=== PATIENT | female | born 1990 | race American Indian/Alaskan Native ===

== ENCOUNTER 2021-10-01 03:22 | Emergency (ER) | payer OTHER ==
[2021-10-01 11:10] LABS: Basophils % (Auto) 0.3 % (0.0-1.8); Eosinophils % (Auto) 0.1 % (0.0-4.3); Hematocrit 36.9 % (30.3-42.9); Hemoglobin 12.5 gm/dl (10.1-14.3); Lymphocytes # (Auto) 1.5 K/mm3 (1.2-5.4); Lymphocytes % (Auto) 22.4 % (13.4-35.0); Mean Corpuscular HGB Conc 34 % (30-34); Mean Corpuscular Volume 87 fl (79-97); Monocytes # (Auto) 0.5 K/mm3 (0.0-0.8); Monocytes % (Auto) 7.9 % (0.0-7.3); Platelet Count 285 K/mm3 (140-440); Red Blood Count 4.22 M/mm3 (3.65-5.03)
[2021-10-01 11:34] LABS: Alanine Aminotransferase 6 units/L (7-56); Blood Urea Nitrogen 11 mg/dL (7-17); Hemolysis Index 11
[2021-10-01 11:41] LABS: BUN/Creatinine Ratio 16
[2021-10-01] MEDS ORDERED: ASPIRIN 81 MG TAB CHEW PO ONE (12:40)
--- NOTE | 2021-10-01 13:43 | XRay Report ---
CHEST 2 VIEWS INDICATION / CLINICAL INFORMATION: chest pain. COMPARISON: None available. FINDINGS: SUPPORT DEVICES: None. HEART / MEDIASTINUM: No significant abnormality. LUNGS / PLEURA: No significant pulmonary or pleural abnormality. No pneumothorax. ADDITIONAL FINDINGS: No significant additional findings. IMPRESSION: 1. No acute findings. Signer Name: Johan Robles DO Signed: 10/01/2021 1:38 PM Workstation Name: [id number]
[2021-10-01] MEDS ORDERED: KETOROLAC 30 MG/1 ML INJ IV ONE (14:06)
[2021-10-01] MEDS ORDERED: ONDANSETRON 4 MG/2 ML INJ IV ONE (14:19)
--- NOTE | 2021-10-01 14:22 | Emergency Department Report ---
ED Chest Pain HPI - General Chief Complaint: Chest Pain Stated Complaint: CHEST PAIN Source: patient, EMS Mode of arrival: Stretcher Limitations: No Limitations - History of Present Illness Initial Comments: Patient is a 31-year-old female with a history of chronic anemia who presents to the ED with complaint of acute onset persistent diffuse chest pain intermittently for the last 4 days. Patient is a complaint of nausea and vomiting. Patient states that the pain is especially worse with movement or palpation of the chest wall. Patient denies abdominal pain, dizziness, syncope, nausea and vomiting, shortness of breath, back pain, traumatic injury, heavy lifting, fever, chills, cough, sore throat, nasal and sinus congestion, palpitations or headache or neck pain. MD Complaint: chest pain -: days(s) (4) Onset: during exertion, awoke with symptoms Pain Location: substernal, left chest, right chest Pain Radiation: none Severity: severe Severity scale (0 -10): 7 Quality: aching, sharp Consistency: constant Improves With: nothing Worsens With: exertion, inspiration, palpation, movement re: nausea, vomting. denies: diaphoresis, dyspnea, sense of impending doom Other Symptoms: denies: cough, fever, syncope, rash, acid taste in mouth, leg s welling, palpitations, burping Treatments Prior to Arrival: none - Related Data Previous Rx's Medication Instructions Recorded Last Taken Type Famotidine [Pepcid] 20 mg PO BID #60 tablet 10/01/21 Unknown Rx Naproxen 500 mg PO Q12H PRN #24 tab 10/01/21 Unknown Rx Ondansetron [Zofran Odt] 4 mg PO Q8HR PRN #20 tab.rapdis 10/01/21 Unknown Rx Allergies Allergy/AdvReac Type Severity Reaction Status Date / Time No Known Allergies Allergy Verified 10/01/21 11:28 Heart Score - HEART Score History: Slightly suspicious EKG: Normal Age: < 45 Risk factors: No known risk factors Troponin: < normal limit HEART Score: 0 - EKG Read Time Time EKG Completed: 10:18 EKG Read Time: 10:25 - Critical Actions Critical Actions: 0-3 pts:0.9-1.7%risk of adverse cardiac event.Candidate for discharge ED Review of Systems ROS: Stated complaint: CHEST PAIN Other details as noted in HPI Constitutional: denies: chills, fever Eyes: denies: eye pain, eye discharge, vision change ENT: denies: ear pain, throat pain Respiratory: denies: cough, shortness of breath, wheezing Cardiovascular: chest pain (Diffuse chest pain). denies: palpitations Endocrine: no symptoms reported Gastrointestinal: nausea, vomiting. denies: abdominal pain, diarrhea Genitourinary: denies: urgency, dysuria, discharge Musculoskeletal: denies: back pain, joint swelling, arthralgia Skin: denies: rash, lesions Neurological: denies: headache, weakness, paresthesias Psychiatric: denies: anxiety, depression Hematological/Lymphatic: denies: easy bleeding, easy bruising ED Past Medical Hx - Past Medical History Previous Medical History?: Yes Additional medical history: Iron deficiency anemia - Medications Home Medications: Home Medications Medication Instructions Recorded Confirmed Last Taken Type Famotidine [Pepcid] 20 mg PO BID #60 tablet 10/01/21 Unknown Rx Naproxen 500 mg PO Q12H PRN #24 tab 10/01/21 Unknown Rx Ondansetron [Zofran Odt] 4 mg PO Q8HR PRN #20 tab.rapdis 10/01/21 Unknown Rx ED Physical Exam - General Limitations: No Limitations General appearance: alert, in no apparent distress - Head Head exam: Present: atraumatic, normocephalic, normal inspection - Eye Eye exam: Present: normal appearance, PERRL, EOMI Pupils: Present: normal accommodation - ENT ENT exam: Present: normal exam, normal orophraynx, mucous membranes moist, TM's normal bilaterally, normal external ear exam - Neck Neck exam: Present: normal inspection, full ROM. Absent: tenderness - Respiratory Respiratory exam: Present: normal lung sounds bilaterally, chest wall tenderness (Palpable reproducible diffuse chest wall tenderness). Absent: respiratory distress, wheezes, rales, rhonchi, accessory muscle use, prolonged expiratory - Cardiovascular Cardiovascular Exam: Present: regular rate, normal rhythm, normal heart sounds. Absent: systolic murmur, diastolic murmur, rubs, gallop - GI/Abdominal GI/Abdominal exam: Present: soft, normal bowel sounds. Absent: distended, tenderness, guarding, rebound, hyperactive bowel sounds, organomegaly, mass - Extremities Exam Extremities exam: Present: normal inspection, full ROM, normal capillary refill. Absent: tenderness - Back Exam Back exam: Present: normal inspection, full ROM. Absent: tenderness, CVA tenderness (R), CVA tenderness (L), muscle spasm, vertebral tenderness - Neurological Exam Neurological exam: Present: alert, oriented X3, CN II-XII intact, normal gait, reflexes normal - Psychiatric Psychiatric exam: Present: normal affect, normal mood - Skin Skin exam: Present: warm, dry, intact, normal color. Absent: rash ED Course Vital Signs 10/01/21 03:29 Temperature 98 F Pulse Rate 85 Respiratory 16 Rate Blood Pressure 119/76 [Right] O2 Sat by Pulse 98 Oximetry RANDELL score - Randell Score Age > 65: (0) No Aspirin use within the Past 7 Days: (0) No 3 or more CAD Risk Factors: (0) No 2 or more Angina events in past 24 hrs: (0) No Known CAD with more than 50% Stenosis: (0) No Elevated Cardiac Markers: (0) No ST Deviation Greater than 0.5mm: (0) No RANDELL Score: 0 ED Medical Decision Making - Lab Data Result diagrams: 10/01/21 11:02 10/01/21 11:02 - EKG Data EKG shows normal: sinus rhythm Rate: bradycardia - EKG Data Interpretation: normal EKG 10/01/21 14:24 EKG shows sinus bradycardia with a ventricular rate of [address] or T wave abnormalities - Radiology Data Radiology results: report reviewed, image reviewed [facility] [address] [place] [address] XRay Report Signed Patient: MALINDA FIORE MR#: [id number] : 1990 Acct:[id number] Age/Sex: 31 / F ADM Date: 10/01/21 Loc: ED Attending Dr: Ordering Physician: JAZMINE PEÑA Date of Service: 10/01/21 Procedure(s): XR chest routine 2V Accession Number(s): [id number] cc: JAZMINE PEÑA Fluoro Time In Minutes: CHEST 2 VIEWS INDICATION / CLINICAL INFORMATION: chest pain. COMPARISON: None available. FINDINGS: SUPPORT DEVICES: None. HEART / MEDIASTINUM: No significant abnormality. LUNGS / PLEURA: No significant pulmonary or pleural abnormality. No pneu mothorax. ADDITIONAL FINDINGS: No significant additional findings. IMPRESSION: 1. No acute findings. Signer Name: Johan Robles DO Signed: 10/01/2021 1:38 PM Workstation Name: [id number] Transcribed By: TREVOR Dictated By: JOHAN ROBLES DO Electronically Authenticated By: JOHAN ROBLES DO Signed Date/Time: 10/01/211337 DD/ 36 TD/TT: Print - Medical Decision Making This is a 31-year-old female with a history of chronic anemia who presents to the ED with complaint of acute onset persistent diffuse chest pain intermittently for the last 4 days. Patient is a complaint of nausea and vomiting. Patient states that the pain is especially worse with movement or palpation of the chest wall. In the ED, patient is alert and oriented x3 and is not in any distress. Patient is hemodynamically stable. Chest x-ray showed no acute cardiopulmonary abnormalities or pneumonitis. EKG shows sinus bra dycardia with a ventricular rate of [address] or T wave abnormalities. All lab test results were reviewed and are all nonactionable including the initial and 3-hour troponin levels. Patient heart score is 0, and patient is PERC negative per Wells criteria. Patient was discharged home on medications for pain since her symptoms are likely due to acute costochondritis. Patient was advised to follow-up with her primary care physician in 5 to 7 days for reevaluation or return to the ED immediately if symptoms get worse. - Differential Diagnosis Costochondritis; ACS; muscle strain; pneumonia; GERD Critical care attestation.: If time is entered above; I have spent that time in minutes in the direct care of this critically ill patient, excluding procedure time. ED Disposition Clinical Impression: Acute nonspecific chest pain with low risk of coronary artery disease, Muscle strain of anterior chest wall, Acute costochondritis, Nausea and vomiting in adult patient Disposition: 01 HOME / SELF CARE / HOMELESS Is pt being admited?: No Does the pt Need Aspirin: No Condition: Stable Instructions: Chest Pain (ED), Muscle Strain, [id number], Nonspecific Chest Pain, Adult, [id number], Chest Wall Pain, [id number], Nausea and Vomiting, Adult, [id number], Costochondritis, [id number] Additional Instructions: All lab test results were reviewed and are all nonactionable. Chest x-ray showed no acute cardiopulmonary abnormalities or pneumonitis. EKG shows sinus rhythm with a ventricular rate of 50 bpm and no acute ST or T wave ab normalities. Based on your history and physical exam findings as well as lab test results and imaging reports, your symptoms are likely musculoskeletal consistent with acute costochondritis or muscle strain of the chest wall. Therefore take medication as needed for pain, take medications for nausea and vomiting and follow-up with your primary care physician in 5 to 7 days for reevaluation. Return to the ED immediately if symptoms get worse. Prescriptions: Naproxen 500 mg PO Q12H PRN #24 tab PRN Reason: Pain , Severe (7-10) Famotidine [Pepcid] 20 mg PO BID #60 tablet Ondansetron [Zofran Odt] 4 mg PO Q8HR PRN #20 tab.rapdis PRN Reason: Nausea Referrals: [facility] [Provider Group] - 7-10 days Forms: Work/School Release Form(ED) Time of Disposition: 14:26 Print Language: GERMAN
[2021-10-01 14:58] VITALS: BP 129/74
--- NOTE | 2021-10-03 14:05 | Electrocardiograph Report ---
[facility] Test Date: 2021-10-01 Test Time: 10:18:08 Pat Name: MALINDA FIORE Department: Room: Gender: F [employer]ch [place] Feller: CHELO : 1990 Requested By: NANCY PADILLA Order Number: [id number] Reading MD: Jim Espinal Measurements Intervals [place] Rate: 50 P: 46 LA: 155 QRS: 72 QRSD: 88 T: 60 QT: 429 QTc: 393 Interpretive Statements Marked sinus bradycardia No previous ECG available for comparison Electronically Signed On 10-03-2021 14:05:27 EDT by Jim Espinal
== END 2021-10-01 14:57 | disposition home or self-care (01) ==
LOC: EDBD → ED 03:22
DX: S29.011A Strain of muscle and tendon of front wall of thorax, initial encounter (principal); R11.2 Nausea with vomiting, unspecified; M94.0 Chondrocostal junction syndrome [Tietze]; D50.9 Iron deficiency anemia, unspecified; X58.XXXA Exposure to other specified factors, initial encounter; Y93.89 Activity, other specified; Y92.89 Other specified places as the place of occurrence of the external cause; Y99.8 Other external cause status
CPT/HCPCS: 36415; 71046; 80053; 84484; 84703; 85025; 93005; 96374; 96375; 99284; J1885; J2405